=== PATIENT | female | born 1995 | race Caucasian/White ===

== ENCOUNTER 2023-04-16 18:39 | Emergency (ER) | payer MEDICAID ==
[~2023-04-16] VITALS: Ht 157.5 cm; Wt 91.0 kg
[2023-04-16 18:41] VITALS: BP 147/96; PULSE 90; RESP 16; TEMP 98.1; O2SAT 99
[2023-04-16] MEDS ORDERED: ACETAMINOPHEN 325MG TABLET PO STA (23:26)
[2023-04-16] MEDS ORDERED: METOCLOPRAMIDE HCL 10MG/2ML VIAL IV ONE (23:30)
[2023-04-16] MEDS ORDERED: SODIUM CHLORIDE 0.9% 1,000 ML IV ONE (23:30)
== END 2023-04-16 22:30 | disposition left against medical advice (07) ==
LOC: ER 18:39
DX: Z53.21 Procedure and treatment not carried out due to patient leaving prior to being seen by health care provider (principal)
CPT/HCPCS: 99281; J7030